=== PATIENT | male | born 1965 | race African-American/Black ===

== ENCOUNTER 2019-07-27 17:39 | Emergency (ER) | payer BC ==
[~2019-07-27] VITALS: Ht 180.3 cm; Wt 109.1 kg
[2019-07-27 17:43] VITALS: Ht 180.3 cm; Wt 109.1 kg
[2019-07-27] MEDS ORDERED: ZPAK PO (17:45)
[2019-07-27] MEDS ORDERED: CYMBALTA60 MG PO (17:49)
[2019-07-27] MEDS ORDERED: CELLCEPT500 MG PO (17:50)
[2019-07-27] MEDS ORDERED: STERAPRED 5MG 125 MG PO (17:50)
[2019-07-27] MEDS ORDERED: FENOGLIDE40 MG PO (17:50)
[2019-07-27] MEDS ORDERED: CARDIZEM60 MG PO (17:51)
[2019-07-27] MEDS ORDERED: PROTONIX20 MG PO (17:51)
[2019-07-27] MEDS ORDERED: VITAMIN E200 UNI1 (17:51)
[2019-07-27] MEDS ORDERED: CATAPRES0.1 MG PO (17:51)
[2019-07-27] MEDS ORDERED: VITAMIN D250000 UNIT PO (17:52)
[2019-07-27] MEDS ORDERED: ZOCOR20 MG (17:52)
[2019-07-27] MEDS ORDERED: LANTUS SOL100 UNIT/1 SC (17:53)
[2019-07-27] MEDS ORDERED: NOVOLOG100 UNIT/1 SC (17:53)
[2019-07-27] MEDS ORDERED: TRULICITY1.5 MG/0.5 SC (17:53)
[2019-07-27] MEDS ORDERED: TESSALON PERLE100 MG PO (19:22)
[2019-07-27] MEDS ORDERED: ALBUTEROL SULF8.5 GM INH (19:22)
[2019-07-27 19:35] VITALS: BP 145/85
== END 2019-07-27 19:35 | disposition home or self-care (01) ==
LOC: D.ER 17:39
DX: J20.9 Acute bronchitis, unspecified (principal)